=== PATIENT | male | born 1975 | race Caucasian/White ===

== ENCOUNTER 2017-06-03 11:00 | Inpatient (IN) | payer BC ==
[~2017-06-03] VITALS: Ht 180.3 cm; Wt 78.6 kg
[2017-06-03 11:57] LABS: BASOPHIL % 0.5 % (0-2); PLATELET COUNT 302 x10^3mcL (130-400); RED CELL DISTRIBUTION WIDTH 14.1 % (11.5-14.5)
[2017-06-03 12:11] LABS: CALCIUM 9.1 mg/dL (8.5-10.1); CHLORIDE SERUM 103 mmol/L (98-107); CREATININE SERUM 0.8 mg/dL (0.7-1.3); GFR1 > 60 mL/min; GLUCOSE SERUM 99 mg/dL (74-106); POTASSIUM SERUM 4.2 mmol/L (3.5-5.1); SODIUM SERUM 138 mmol/L (136-145)
[2017-06-03 12:15] LABS: ALBUMIN 4.1 g/dL (3.4-5.0); ALKALINE PHOSPHATASE 84 U/L (46-116); ALT/SGPT 33 U/L (16-63); AST/SGOT 21 U/L (15-37); BILIRUBIN TOTAL 0.77 mg/dL (0.20-1.00)
[2017-06-03 12:16] LABS: TOTAL PROTEIN, SERUM 8.3 g/dL (6.4-8.2)
[2017-06-03 14:55] VITALS: BP 102/67
[2017-06-03 15:03] VITALS: Ht 180.3 cm; Wt 78.6 kg
[2017-06-03 15:47] LABS: T3 TOTAL 1.1 ng/mL
[2017-06-03 15:52] LABS: FREE T4 0.94 ng/dL (0.76-1.46); FREE THYROXINE INDEX 3.2 ug/dL (1.4-4.5); T4(THYROXINE) 9.1 ug/dL (4.7-13.3)
[2017-06-03 16:06] LABS: AMYLASE 51 U/L (25-115); LIPASE 164 IU/L (73-393)
[2017-06-03 16:09] LABS: CHOLESTEROL/HDL RATIO 4.3; MAGNESIUM 2.1 mg/dL (1.8-2.4)
[2017-06-03 17:57] VITALS: BP 109/63
[2017-06-03 20:39] VITALS: BP 103/58
[2017-06-04 05:24] VITALS: BP 96/50
[2017-06-04 09:02] VITALS: BP 101/54
[2017-06-04 10:30] LABS: microscopic required? NO
[2017-06-04 11:02] LABS: AMPHETAMINE QUAL UR NONE DETECTED (NEG <=1000)
[2017-06-04 12:12] LABS: UA SPECIFIC GRAVITY 1.015 (1.005-1.035)
[2017-06-04 12:13] LABS: urine erythrocyte NEGATIVE (NEGATIVE)
[2017-06-04 14:24] VITALS: BP 100/57
[2017-06-04] MEDS ORDERED: CYCLOBENZAPRINE5 MG PO ×2 (16:56→19:06)
[2017-06-04] MEDS ORDERED: ESGIC CAPSULE1 EACH PO ×2 (16:57→19:06)
[2017-06-04 17:21] VITALS: BP 104/60
[2017-06-04 17:37] VITALS: BP 104/60
== END 2017-06-04 18:15 | disposition home or self-care (01) | DRG 74 ==
LOC: ED 11:00 → DU 13:29
PROVIDERS: Emergency Medicine; ADMIT Family Medicine
DX: G90.8 Other disorders of autonomic nervous system (principal); F17.210 Nicotine dependence, cigarettes, uncomplicated; E78.5 Hyperlipidemia, unspecified
CPT/HCPCS: 83880; 84439; 90658; 97116-GP; J1200; J2765; J7030; Q0092